=== PATIENT | male | born 1965 | race Caucasian/White ===

== ENCOUNTER 2017-07-02 04:42 | Emergency (ER) | payer OTHER ==
[2017-07-02] MEDS ORDERED: DELTASONE PO ONE (07:46)
--- NOTE | 2017-07-02 07:51 | Emergency Department Report ---
ED ENT HPI - General Chief complaint: Upper Respiratory Infection Stated complaint: NOSE PAIN??? Time Seen by Provider: 07/02/17 07:45 Source: patient Mode of arrival: Ambulatory Limitations: No Limitations - History of Present Illness Initial comments: 52-year-old male past medical history none presents with complaint of one month of nasal congestion and upper airway congestion. Patient denies fevers or chills. Speaking in full sentences. Patient speaks some Citizen [place] but primarily speaks [place]. Patient is awake alert and oriented 3. Patient states he has had some intermittent cough. Patient states he has been using some over-the -counter nasal sprays for his congestion. Currently complaining of nasal congestion. Onset/Timin -: month(s) Location: nose Severity: mild Quality: aching Consistency: intermittent Worsens with: none Associated Symptoms: cough, rhinorrhea - Related Data Previous Rx's Medication Instructions Recorded Last Taken Type Amoxicillin/Potassium Clav 1 each PO BID #20 tablet 07/02/17 Unknown Rx [Augmentin 875-125 Tablet] Azelastine 0.1% (Nf) [Astelin (Nf)] 1 spray NS QDAY PRN #1 bottle 07/02/17 Unknown Rx Cetirizine HCl [ZyrTEC] 10 mg PO QDAY #14 capsule 07/02/17 Unknown Rx Fluticasone [Flonase] 1 spray NS QDAY PRN #1 bottle 07/02/17 Unknown Rx Phenylephrine/Dm/Acetaminop/GG 10 ml PO Q6H PRN #1 liquid 07/02/17 Unknown Rx [Mucinex Ypjo-Qod-Htrgwzhjqp Lq] predniSONE [Deltasone] 20 mg PO QDAY #10 tab 07/02/17 Unknown Rx Allergies Allergy/AdvReac Type Severity Reaction Status Date / Time No Known Allergies Allergy Unverified 07/02/17 06:37 ED Dental HPI - General Chief complaint: Upper Respiratory Infection Stated complaint: NOSE PAIN??? Time Seen by Provider: 07/02/17 07:45 Source: patient Mode of arrival: Ambulatory Limitations: No Limitations - Related Data Previous Rx's Medication Instructions Recorded Last Taken Type Amoxicillin/Potassium Clav 1 each PO BID #20 tablet 07/02/17 Unknown Rx [Augmentin 875-125 Tablet] Azelastine 0.1% (Nf) [Astelin (Nf)] 1 spray NS QDAY PRN #1 bottle 07/02/17 Unknown Rx Cetirizine HCl [ZyrTEC] 10 mg PO QDAY #14 capsule 07/02/17 Unknown Rx Fluticasone [Flonase] 1 spray NS QDAY PRN #1 bottle 07/02/17 Unknown Rx Phenylephrine/Dm/Acetaminop/GG 10 ml PO Q6H PRN #1 liquid 07/02/17 Unknown Rx [Mucinex Ayzl-Stq-Brdjmyuazj Lq] predniSONE [Deltasone] 20 mg PO QDAY #10 tab 07/02/17 Unknown Rx Allergies Allergy/AdvReac Type Severity Reaction Status Date / Time No Known Allergies Allergy Unverified 07/02/17 06:37 ED Review of Systems ROS: Stated complaint: NOSE PAIN??? Other details as noted in HPI Constitutional: denies: chills, fever Eyes: denies: eye pain, eye discharge, vision change ENT: congestion. denies: ear pain, throat pain Respiratory: denies: cough, shortness of breath, wheezing Cardiovascular: denies: chest pain, palpitations Endocrine: no symptoms reported Gastrointestinal: denies: abdominal pain, nausea, diarrhea Genitourinary: denies: urgency, dysuria Musculoskeletal: denies: back pain, joint swelling, arthralgia Skin: denies: rash, lesions Neurological: denies: headache, weakness, paresthesias Psychiatric: denies: anxiety, depression Hematological/Lymphatic: denies: easy bleeding, easy bruising ED Past Medical Hx - Past Medical History Previous Medical History?: Yes Hx Hypertension: Yes Hx Arthritis: Yes (gout) Additional medical history: hyperlipidemia - Surgical History Past Surgical History?: No - Social History Smoking Status: Never Smoker Substance Use Type: None - Medications Home Medications: Home Medications Medication Instructions Recorded Confirmed Last Taken Type Amoxicillin/Potassium Clav 1 each PO BID #20 tablet 07/02/17 Unknown Rx [Augmentin 875-125 Tablet] Azelastine 0.1% (Nf) [Astelin (Nf)] 1 spray NS QDAY PRN #1 bottle 07/02/17 Unknown Rx Cetirizine HCl [ZyrTEC] 10 mg PO QDAY #14 capsule 07/02/17 Unknown Rx Fluticasone [Flonase] 1 spray NS QDAY PRN #1 bottle 07/02/17 Unknown Rx Phenylephrine/Dm/Acetaminop/GG 10 ml PO Q6H PRN #1 liquid 07/02/17 Unknown Rx [Mucinex Nspv-Nll-Zzkkvyrplk Lq] predniSONE [Deltasone] 20 mg PO QDAY #10 tab 07/02/17 Unknown Rx ED Physical Exam - General Limitations: No Limitations General appearance: alert, in no apparent distress - Head Head exam: Present: atraumatic, normocephalic - Eye Eye exam: Present: normal appearance, PERRL, EOMI - ENT ENT exam: Present: mucous membranes moist, other (nasal congestion bilaterally) - Neck Neck exam: Present: normal inspection - Respiratory Respiratory exam: Present: normal lung sounds bilaterally. Absent: respiratory distress - Cardiovascular Cardiovascular Exam: Present: regular rate, normal rhythm. Absent: systolic murmur, diastolic murmur, rubs, gallop - GI/Abdominal GI/Abdominal exam: Present: soft, normal bowel sounds - Rectal Rectal exam: Present: deferred - Extremities Exam Extremities exam: Present: normal inspection - Back Exam Back exam: Present: normal inspection - Neurological Exam Neurological exam: Present: alert, oriented X3 - Psychiatric Psychiatric exam: Present: normal affect, normal mood - Skin Skin exam: Present: warm, dry, intact, normal color. Absent: rash ED Course Vital Signs 07/02/17 06:27 Temperature 98.1 F Pulse Rate 74 Respiratory 18 Rate Blood Pressure 142/97 O2 Sat by Pulse 99 Oximetry ED Medical Decision Making - Medical Decision Making A/P: Sinusitis 1-will treat patient with a course of Augmentin 10 days 2-azelastine, Flonase, mucinex, zyrtec 3- short copurse prednisone, pt has had symptoms for 1 motnh, will try to alleviate intrnasal congestion 4- f/u with PMD and ENT Critical care attestation.: If time is entered above; I have spent that time in minutes in the direct care of this critically ill patient, excluding procedure time. ED Disposition Clinical Impression: Sinusitis Qualifiers: Sinusitis location: frontal Chronicity: subacute Qualified Code(s): J01.10 - Acute frontal sinusitis, unspecified Disposition: DC-01 TO HOME OR SELFCARE Is pt being admited?: No Does the pt Need Aspirin: No Condition: Stable Instructions: Sinusitis (ED), Acute Bacterial Rhinosinusitis (ED) Prescriptions: Amoxicillin/Potassium Clav [Augmentin 875-125 Tablet] 1 each PO BID #20 tablet Azelastine 0.1% (Nf) [Astelin (Nf)] 1 spray NS QDAY PRN #1 bottle PRN Reason: Congestion Cetirizine HCl [ZyrTEC] 10 mg PO QDAY #14 capsule Fluticasone [Flonase] 1 spray NS QDAY PRN #1 bottle PRN Reason: Congestion Phenylephrine/Dm/Acetaminop/GG [Mucinex Ijqi-Lxh-Pgyzwaojhd Lq] 10 ml PO Q6H PRN #1 liquid PRN Reason: Cough predniSONE [Deltasone] 20 mg PO QDAY #10 tab Referrals: [facility] [Outside] - 3-5 Days [facility] [Outside] - 3-5 Days [facility] [Provider Group] - [facility] - 3-5 Days Forms: Work/School Release Form(ED) Time of Disposition: 07:53
[2017-07-02 08:06] VITALS: BP 111/84
== END 2017-07-02 08:15 | disposition home or self-care (01) ==
LOC: ED 04:42
DX: J32.9 Chronic sinusitis, unspecified (principal); I10 Essential (primary) hypertension; E78.5 Hyperlipidemia, unspecified
CPT/HCPCS: 99282; J7512